=== PATIENT | male | born 1940 | race Caucasian/White ===

== ENCOUNTER 2021-10-23 05:08 | Inpatient (IN) ==
[2021-10-23] MEDS ORDERED: ONDANSETRON 4 MG/2 ML VIAL IV STA (05:23)
[2021-10-23] MEDS ORDERED: HYDROmorphone 1 MG/1 ML SYRINGE IV STA ×2 (05:23→12:47)
[2021-10-23] MEDS ORDERED: METHOCARBAMOL 1,000 MG/10 ML VIAL IV STA (05:23)
[2021-10-23] MEDS ORDERED: ONDANSETRON 4 MG/2 ML VIAL ONE (05:24)
[2021-10-23] MEDS ORDERED: HYDROmorphone 1 MG/1 ML SYRINGE ONE (05:24)
[2021-10-23] MEDS ORDERED: METHOCARBAMOL 1,000 MG/10 ML VIAL ONE (05:24)
[2021-10-23 05:33] LABS: Basophils % 0.4 % (0.0-0.8); Eosinophils # 0.1 10*3/uL (0.0-0.87); Eosinophils % 0.9 % (0.00-10.9); Hematocrit 38.9 VOL% (42.0-52.0); Hemoglobin 13.1 GM/DL (14.0-18.0); Immature Granulocytes % 0.8 %; Immature Granulocytes Absolute 0.06 #; Lymphocytes % 13.1 % (21.2-54.2); Mean Corpuscular HGB Conc 33.7 GM/DL (32-36); Mean Corpuscular Volume 95.1 FL (87-102); Monocytes # 0.6 10*3/uL (0.11-0.8); Monocytes % 7.5 % (1.7-12.7); Neutrophils % 77.3 % (38.7-73.9); Platelet Count 197 T/CUMM (130-400); Red Blood Count 4.09 MC/CUMM (3.8-5.5); Red Cell Distribution Width 13.6 % (9.3-17.3); White Blood Count 7.9 T/CUMM (4-12)
[2021-10-23 05:42] LABS: INR 1.3; PT Patient Result 13.8 SECS (10.5-12.0); Partial Thromboplastin Time 34.5 SECS (23.8-32.1)
[2021-10-23 05:51] LABS: Albumin 3.9 G/DL (3.4-5.0); Bilirubin,Total 0.7 MG/DL (0.20-1.00); Calcium 8.5 MG/DL (8.5-10.1); Osmolality,Calculated 272.1 MOS/KG (273-304); Potassium 4.7 MMOL/L (3.5-5.1); Total Protein 6.5 G/DL (6.4-8.2)
[2021-10-23] MEDS ORDERED: DIAZEPAM 5 MG TABLET PO STA (07:04)
[2021-10-23] MEDS ORDERED: ACETAMINOPHEN 325 MG TABLET PO PRN (07:22)
[2021-10-23] MEDS ORDERED: HYDROmorphone 2 MG TABLET PO PRN (07:22)
[2021-10-23] MEDS ORDERED: ONDANSETRON 4 MG/2 ML VIAL IV PRN (07:22)
[2021-10-23] MEDS ORDERED: NITROGLYCERIN SL 0.4 MG TABLET SL PRN (07:26)
[2021-10-23] MEDS ORDERED: ENOXAPARIN 40 MG/0.4 ML SYRINGE SUBCUT SCH (07:30)
[2021-10-23] MEDS ORDERED: HYDROmorphone 1 MG/1 ML SYRINGE IV PRN (07:34)
[2021-10-23] MEDS ORDERED: CYCLOBENZAPRINE 10 MG TABLET PO STA (08:00)
[2021-10-23] MEDS ORDERED: PANTOPRAZOLE 40 MG TABLET PO SCH (09:00)
[2021-10-23] MEDS ORDERED: DOCUSATE SODIUM 100 MG CAPSULE PO SCH (09:00)
[2021-10-23] MEDS ORDERED: METOPROLOL SUCCINATE XL 50 MG TABLET PO SCH (09:00)
[2021-10-23] MEDS ORDERED: ASPIRIN EC 81 MG TABLET PO SCH (09:00)
[2021-10-23] MEDS ORDERED: DIAZEPAM 2 MG TABLET PO SCH ×2 (09:00→14:00)
[2021-10-23] MEDS ORDERED: MAGNESIUM CHLORIDE 64 MG TABLET PO SCH ×2 (09:30→11:30)
[2021-10-23] MEDS ORDERED: DILTIAZEM CD 120 MG CAPSULE PO SCH (09:30)
[2021-10-23] MEDS ORDERED: LOSARTAN 50 MG TABLET PO SCH (09:30)
[2021-10-23] MEDS: SODIUM CHLORIDE 0.45% 1,000 ML IV SCH ×2 (11:17→16:04)
[2021-10-23] MEDS: DRONEDARONE 400 MG TABLET PO SCH ×2 (11:18→18:00)
[2021-10-23 12:28] LABS: Mucus,Urine Occasional /LPF (Occasional)
[2021-10-23 12:29] LABS: Urine Appearance Clear (Clear); Urine Color Yellow (Yellow); Urine pH 5.5 (4.5-8.0)
[2021-10-23 12:32] LABS: Bilirubin,Urine Negative (Negative); Blood, Urine Negative (Negative); Glucose,Urine (UA) Negative (Negative); Ketones,Urine 40 mg/dL (Negative); Nitrite,Urine Negative (Negative); Protein,Urine Trace mg/dL (Negative); Urine Specific Gravity 1.027 (1.001-1.035); Urine Urobilinogen 0.2 eU/dL (<2.0)
[2021-10-23] MEDS ORDERED: DIAZEPAM 5 MG TABLET PO ONE (12:55)
[2021-10-23] MEDS: HYDROmorphone 1 MG/1 ML SYRINGE IV PRN ×2 (16:37→19:02)
[2021-10-23] MEDS ORDERED: ROSUVASTATIN 10 MG TABLET PO SCH (17:00)
[2021-10-23] MEDS ORDERED: ALUM/MAG/SIMETH/LIDO VISC 1:1 30 ML BOTTLE PO STA (17:54)
[2021-10-23 19:04] VITALS: BP 184/84
[2021-10-23] MEDS ORDERED: DIAZEPAM 5 MG TABLET PO SCH (21:00)
[2021-10-23] MEDS ORDERED: RIVAROXABAN 20 MG TABLET PO SCH (21:00)
== END 2021-10-23 19:03 | disposition hospice, home (50) | DRG 552 ==
LOC: N.ED 05:08 → N.EDINP 07:22
PROVIDERS: ADMIT Family Medicine; ATTEND Family Medicine

== ENCOUNTER 2022-02-10 17:08 | Inpatient (IN) ==
[2022-02-10] MEDS ORDERED: ASPIRIN 325 MG TABLET PO STA (17:15)
[2022-02-10] MEDS: NITROGLYCERIN SL 0.4 MG TABLET SL PRN ×2 (17:15→17:55)
[2022-02-10] MEDS ORDERED: NITROGLYCERIN SL 0.4 MG TABLET SL ONE (17:16)
[2022-02-10 17:24] LABS: Basophils # 0.1 10*3/uL (0.0-0.2); Eosinophils # 0.1 10*3/uL (0.0-0.87); Eosinophils % 1.9 % (0.00-10.9); Hematocrit 35.9 VOL% (42.0-52.0); Hemoglobin 11.2 GM/DL (14.0-18.0); Immature Granulocytes % 0.5 %; Immature Granulocytes Absolute 0.03 #; Lymphocytes # 1.7 10*3/uL (1.4-4.0); Lymphocytes % 29.7 % (21.2-54.2); Mean Corpuscular HGB Conc 31.2 GM/DL (32-36); Mean Platelet Volume 10.1 FL (9.6-12.0); Monocytes # 0.7 10*3/uL (0.11-0.8); Monocytes % 11.7 % (1.7-12.7); Neutrophils % 55.2 % (38.7-73.9); Platelet Count 231 T/CUMM (130-400); Red Blood Count 3.82 MC/CUMM (3.8-5.5); Red Cell Distribution Width 13.9 % (9.3-17.3); White Blood Count 5.8 T/CUMM (4-12)
[2022-02-10] MEDS ORDERED: ONDANSETRON 4 MG/2 ML VIAL IV STA (17:28)
[2022-02-10] MEDS ORDERED: MORPHINE 2 MG/1 ML SYRINGE IV STA (17:28)
[2022-02-10 17:33] LABS: INR 1.2; PT Patient Result 12.9 SECS (10.1-12.1)
[2022-02-10 17:48] LABS: Albumin 4.1 G/DL (3.4-5.0); Bilirubin,Total 0.7 MG/DL (0.20-1.00); Calcium 9.4 MG/DL (8.5-10.1); Osmolality,Calculated 277.5 MOS/KG (273-304); Potassium 4.3 MMOL/L (3.5-5.1); Total Protein 6.7 G/DL (6.4-8.2)
[2022-02-10] MEDS ORDERED: ALUM/MAG/SIMETH/LIDO VISC 1:1 30 ML BOTTLE PO ONE ×2 (17:53→20:20)
[2022-02-10] MEDS ORDERED: ALUM/MAG/SIMETH/LIDO VISC 1:1 30 ML BOTTLE PO STA (17:53)
[2022-02-10] MEDS ORDERED: ONDANSETRON 4 MG/2 ML VIAL IV PRN (18:35)
[2022-02-10] MEDS ORDERED: MAGNESIUM SULF RIDER 4 GM/100 ML PREMIX IV PRN (18:35)
[2022-02-10] MEDS ORDERED: ZALEPLON 5 MG CAPSULE PO PRN (18:35)
[2022-02-10] MEDS ORDERED: MAGNESIUM SULF RIDER 2 GM/50 ML PREMIX IV PRN (18:35)
[2022-02-10] MEDS ORDERED: ALUMINUM/MAGNES/SIMETH MAX STR 30 ML UDCUP PO PRN (18:38)
[2022-02-10] MEDS ORDERED: NITROGLYCERIN SL 0.4 MG TABLET SL PRN (18:38)
[2022-02-10] MEDS: MORPHINE 2 MG/1 ML SYRINGE IV PRN ×2 (20:51→23:30)
[2022-02-10] MEDS ORDERED: RIVAROXABAN 20 MG TABLET PO SCH (21:00)
[2022-02-11] MEDS: MORPHINE 2 MG/1 ML SYRINGE IV PRN ×3 (02:00→10:15)
[2022-02-11 02:07] LABS: Basophils % 0.2 % (0.0-0.8); Eosinophils % 0.2 % (0.00-10.9); Hematocrit 33.6 VOL% (42.0-52.0); Hemoglobin 10.6 GM/DL (14.0-18.0); Immature Granulocytes % 0.4 %; Immature Granulocytes Absolute 0.05 #; Lymphocytes # 0.2 10*3/uL (1.4-4.0); Lymphocytes % 1.4 % (21.2-54.2); Mean Corpuscular HGB Conc 31.5 GM/DL (32-36); Mean Corpuscular Volume 94.4 FL (87-102); Mean Platelet Volume 10.2 FL (9.6-12.0); Monocytes # 0.4 10*3/uL (0.11-0.8); Monocytes % 2.8 % (1.7-12.7); Platelet Count 163 T/CUMM (130-400); Red Blood Count 3.56 MC/CUMM (3.8-5.5); Red Cell Distribution Width 14.2 % (9.3-17.3); White Blood Count 13.2 T/CUMM (4-12)
[2022-02-11 02:35] LABS: Albumin 3.5 G/DL (3.4-5.0); Band Neutrophils 3 % (0-10); Bilirubin,Direct 0.67 MG/DL (0.0-0.20); Bilirubin,Indirect 0.6 MG/DL (0.0-1.0); Bilirubin,Total 1.3 MG/DL (0.20-1.00); Platelet Estimate Adequate; Total Cells Counted 100; Total Protein 5.7 G/DL (6.4-8.2)
[2022-02-11] MEDS: SODIUM CHLORIDE 0.45% 1,000 ML IV SCH ×4 (03:05→20:27)
[2022-02-11] MEDS ORDERED: ROSUVASTATIN 10 MG TABLET PO SCH (05:00)
[2022-02-11] MEDS ORDERED: ASPIRIN EC 81 MG TABLET PO SCH (06:00)
[2022-02-11] MEDS ORDERED: DILTIAZEM CD 240 MG CAPSULE PO SCH (06:00)
[2022-02-11] MEDS ORDERED: LOSARTAN 50 MG TABLET PO SCH (06:00)
[2022-02-11] MEDS: METOPROLOL SUCCINATE XL 50 MG TABLET PO SCH ×2 (07:15→16:42)
[2022-02-11] MEDS: PANTOPRAZOLE 40 MG TABLET PO SCH (07:15)
[2022-02-11] MEDS: PRIMIDONE 50 MG TABLET PO SCH (07:15)
[2022-02-11] MEDS: DRONEDARONE 400 MG TABLET PO SCH ×2 (07:15→17:13)
[2022-02-11] MEDS: ASPIRIN EC 81 MG TABLET PO SCH (16:44)
[2022-02-11] MEDS: LOSARTAN 50 MG TABLET PO SCH (16:44)
[2022-02-11] MEDS: DILTIAZEM CD 240 MG CAPSULE PO SCH (16:46)
[2022-02-11] MEDS ORDERED: RIVAROXABAN 20 MG TABLET PO SCH (17:00)
[2022-02-12] MEDS: SODIUM CHLORIDE 0.45% 1,000 ML IV SCH ×3 (02:16→21:52)
[2022-02-12] MEDS: DRONEDARONE 400 MG TABLET PO SCH ×2 (05:16→17:32)
[2022-02-12] MEDS: METOPROLOL SUCCINATE XL 50 MG TABLET PO SCH ×2 (05:16→17:32)
[2022-02-12] MEDS: PANTOPRAZOLE 40 MG TABLET PO SCH (05:16)
[2022-02-12] MEDS: PRIMIDONE 50 MG TABLET PO SCH (05:16)
[2022-02-12 07:48] LABS: Albumin 2.9 G/DL (3.4-5.0); Bilirubin,Direct 0.44 MG/DL (0.0-0.20); Bilirubin,Indirect 0.7 MG/DL (0.0-1.0); Bilirubin,Total 1.1 MG/DL (0.20-1.00); Total Protein 5.6 G/DL (6.4-8.2)
[2022-02-12] MEDS: ASPIRIN EC 81 MG TABLET PO SCH (17:31)
[2022-02-12] MEDS: DILTIAZEM CD 240 MG CAPSULE PO SCH (17:31)
[2022-02-12] MEDS: LOSARTAN 50 MG TABLET PO SCH (17:32)
[2022-02-13] MEDS: PANTOPRAZOLE 40 MG TABLET PO SCH (05:35)
[2022-02-13] MEDS: DRONEDARONE 400 MG TABLET PO SCH (05:35)
[2022-02-13] MEDS: METOPROLOL SUCCINATE XL 50 MG TABLET PO SCH (05:35)
[2022-02-13] MEDS: SODIUM CHLORIDE 0.45% 1,000 ML IV SCH (05:35)
[2022-02-13] MEDS: PRIMIDONE 50 MG TABLET PO SCH (05:35)
[2022-02-13 09:00] VITALS: BP 117/69
== END 2022-02-13 10:55 | disposition home or self-care (01) | DRG 438 ==
LOC: N.EDINP 17:08 → EDBD 17:08 → EDUNIT# 17:08 → N.ED 17:08 → N.2W 23:03 → N.TELEN 02-11 17:54
PROVIDERS: ADMIT Family Medicine; ATTEND Family Medicine